=== PATIENT | female | born 1975 | race Caucasian/White ===

== ENCOUNTER 2018-10-19 06:41 | Day surgery (SDC) | payer MEDICAID ==
[2018-10-19] VITALS (29 sets, daily range): BP systolic 97–131; BP diastolic 62–83; PULSE 77–99; RESP 10–18; Ht 152.4 cm; Wt 58.4 kg
[~2018-10-19] VITALS: Ht 152.4 cm; Wt 58.4 kg
[~2018-10-19 06:41] MED LIST: CEFAZOLIN 2 GM/50 ML (PMX) 50 ML IVPB SCH; SOD CHLORIDE 0.9% 1,000 ML IV ONE
[2018-10-19] MEDS ORDERED: ACETAMINOPHEN 500 MG TAB PO ONE (07:00)
[2018-10-19] MEDS ORDERED: MIDAZOLAM 1 MG/ML 2 ML INJ ONE (07:55)
[2018-10-19] MEDS ORDERED: PROPOFOL 40 ML ONE (07:55)
[2018-10-19] MEDS ORDERED: FENTAnyl 50 MCG/ML VIAL ONE ×2 (07:55→10:53)
[2018-10-19] MEDS ORDERED: CEFAZOLIN 1 GM INJ ONE (07:55)
[2018-10-19] MEDS ORDERED: ONDANSETRON 4 MG INJ ONE (07:56)
[2018-10-19] MEDS ORDERED: ISOSULFAN BLUE 1% 5 ML INJ SC ONE (07:56)
[2018-10-19] MEDS ORDERED: FAMOTIDINE 20 MG INJ ONE (07:56)
--- NOTE | 2018-10-19 08:45 | PREAC ---
Date/Time of Note Date/Time of Note DATE: 10/19/18 TIME: 08:43 Anesthesia Eval and Record Evaluation Time Pre-Procedure Interview DATE: 10/19/18 TIME: 08:43 Age 43 Sex female NPO: 8 hrs Preoperative diagnosis L breast CA Planned procedure L needle loc partial mastectomy Past Medical History Past Medical History: None Surgery & Anesthesia Issues No known issue Meds Anticoagulation: No Beta Yessenia within 24 hr: No Reason Beta Yessenia not given: Pt. not on B-Yessenia Current Medications Cefazolin Sodium/ Dextrose 50 ml @ 100 mls/hr PRE-OP IVPB ; Start 10/19/18 at 06:00; Stop 10/19/18 at 15:00 Sodium Chloride 1,000 ml @ 75 mls/hr [id number] ONCE IV ; Start 10/19/18 at 06:00; Stop 10/19/18 at 19:19 Meds reviewed: Yes Allergies Coded Allergies: No Known Allergy (Unverified , 10/18/18) Allergies Reviewed: Yes Labs/Studies Labs Reviewed: Reviewed by anesthesiologist test: Negative Pre-procedure Exam Airway: Adequate mouth opening, Adequate thyromental dist Mallampati: Mallampati II Teeth: Normal Lung: Normal Heart: Normal ASA Physical Status ASA physical status: 2 Emergency: None Planned Anesthetic General/MAC: LMA Pre-operative Attestations Prior to commencing anesthesia and surgery, the patient was re-evaluated, there was verification of: *The patient's identity *The results of appropriate recent lab work and preoperative vital signs *The above evaluation not changing prior to induction *Anesthetic plan, risk benefits, alternative and complications discussed with patient/family; questions answered; patient/family understands, accepts and wishes to proceed. Cmm Operator used RO AGUILAR Oct 19, 2018 08:45
[2018-10-19] MEDS ORDERED: DIPHENHYDRAMINE 50 MG INJ IV PRN (09:00)
[2018-10-19] MEDS ORDERED: ALBUTEROL 0.083% (NEB) 2.5 MG/3 ML AMP HHN PRN (09:00)
[2018-10-19] MEDS ORDERED: OXYCODONE/ACETAMINOPHEN (5/325) TAB PO PRN ×2 (09:00)
[2018-10-19] MEDS ORDERED: LABETALOL HCL 20MG INJ IV PRN (09:00)
[2018-10-19] MEDS ORDERED: morphine (1 MG/ML) 10ML SYRINGE IV PRN ×2 (09:00)
[2018-10-19] MEDS ORDERED: MEPERIDINE 25 MG INJ IV PRN (09:00)
[2018-10-19] MEDS ORDERED: HYDROmorphONE 1 MG/5 ML IV SYRINGE IV PRN ×2 (09:00)
[2018-10-19] MEDS ORDERED: ONDANSETRON 4 MG INJ IV PRN ×2 (09:00→11:00)
[2018-10-19] MEDS ORDERED: FENTAnyl 50 MCG/ML VIAL IV PRN ×2 (09:00)
[2018-10-19] MEDS ORDERED: METOCLOPRAMIDE 10 MG INJ ONE (09:23)
--- NOTE | 2018-10-19 10:48 | SIPON ---
Date/Time of Note Date/Time of Note DATE: 10/19/18 TIME: 10:46 Operative Report Preoperative Diagnosis Invasive cancer left breast Postoperative Diagnosis Same Operation/Procedure Performed Needle directed left partial mastectomy and axillary dissection utilizing sentinel lymph node technique Surgeon see signature line training program assistant Dr Cheatham Second assist: ROJELIO HERRERA MD Anesthesia: general Estimated blood loss: 10 - 50 ml's Transfusion Required none Specimen Left partial mastectomy specimen and sentinel lymph node with additional axillary nodes Grafts/Implants none Complications none SILVIA DALTON MD Oct 19, 2018 10:48
[2018-10-19] MEDS ORDERED: ACETAMINOPHEN 1000MG/100ML IV 100 ML IVPB PRN (11:00)
[2018-10-19] MEDS ORDERED: morphine 2 MG INJ IV PRN (11:00)
--- NOTE | 2018-10-19 11:11 | PAC ---
Date/Time of Note Date/Time of Note DATE: 10/19/18 TIME: 11:10 Post-Anesthesia Notes Post-Anesthesia Note Last documented vital signs Vital Signs Date Temp Pulse Resp B/P (MAP) Pulse Ox O2 O2 Flow FiO2 Time Delivery Rate 10/19/18 97.5 98 79 84 18 16 109/67 99 100 Room 09:19 110 (81) 114/ Air face 5 67 mask 6L Activity: WNL Respiratory function: WNL Cardiovascular function: WNL Mental status: Baseline Pain reasonably controlled: Yes Hydration appropriate: Yes Nausea/Vomiting absent: Yes RO AGUILAR Oct 19, 2018 11:11
[2018-10-19] MEDS: D5W-0.45 NACL + KCL 20 MEQ 1,000 ML IV SCH ×3 (11:41→20:13)
[2018-10-19] MEDS: HYDROmorphONE 1 MG/5 ML IV SYRINGE IV PRN ×2 (11:48→12:07)
--- NOTE | 2018-10-19 13:16 | OPR ---
DATE OF OPERATION: 10/19/2018 PREOPERATIVE DIAGNOSIS: Invasive cancer, left breast. POSTOPERATIVE DIAGNOSIS: Invasive cancer, left breast. PROCEDURE: Left needle-directed partial mastectomy and axillary dissection utilizing sentinel lymph node technique. ANESTHESIA: General. ANESTHESIOLOGIST: Maryann Abbott CRNA SURGEON: Neo Ward MD ASSISTANTS: Jamie Cheatham MD and Maria Del Carmen Rodriguez MD INDICATIONS FOR PROCEDURE: The patient is a 43-year-old female who underwent screening mammography a nd was found to have a 1.7 cm lesion very suspicious. Core biopsy confirmed invasive cancer. The tu mor was HER-2 positive but based on the size of the tumor, decision was made not to pursue neoadjuvan t chemotherapy. She was counseled as benefit of partial mastectomy and sentinel lymph node biopsy. She consented and was scheduled for surgery. DESCRIPTION OF PROCEDURE: On the morning of surgery, the patient presented to [facility] where she underwent localization of the lesion performed by attending radiologist, Dr. Mikaela Davison. Subsequently, she was brought to the operating theater, placed under general anesth esia. The left breast and axillary region was prepped and draped in usual sterile fashion. Approxim ately 3 to 4 mL of 1% Lymphazurin blue dye were then injected peritumorally. The breast was gently m assaged for approximately 12 minutes. At this point, a 3 to 4 cm incision was made in the left axill terry hairline. Subcutaneous tissue was dissected with cautery down through the clavipectoral fascia. A dye-stained lymphatic was identified and traced to a sentinel node. This node and several additio nal nodes were resected using combination of the LigaSure device and cautery. Specimen was removed a nd sent for intraoperative analysis performed by attending pathologist, Dr. Mrak Joy. Dr. Chang mcginnis stated all nodes appeared to be benign and he deferred final diagnosis to permanent pathology. The wound was irrigated. Minimal bleeding was controlled with cautery. A #10 Italian Maverick-Rashid drain was then brought through the left mid axillary line, cut to size and weight laid within the axi lla. It was secured in place with 2-0 nylon suture in a standard fashion and the skin was then reapp roximated with 4-0 Vicryl suture in subcuticular fashion. Attention was then directed to performing the partial mastectomy. The localization wires were in the mid portion of the outer 2 quadrants of t he breast and upon examining, the post-wire placement mammogram, it was realized that the tumor was a ctually posterior to the nipple areolar complex; therefore, a periareolar incision was made from the 12 o'clock location through the 3 o'clock location to the 6 o'clock location. Subcutaneous tissue wa s dissected with cautery. Skin edges were elevated with skin hooks. Wide circumferential dissection of the tissue associated with the wires then took place, taking great care to ensure adequate margin . Specimen was elevated, transected, oriented and sent for radiographic confirmation of capture. Ca pture was confirmed. The specimen was then sent for permanent pathologic analysis. The wound was ir rigated. Residual bleeding was controlled with cautery. The skin was then reapproximated with a tang p dermal layer of 4-0 Vicryl sutures in interrupted fashion, followed by final skin approximation wit h 5-0 PDS sutures in subcuticular fashion. Dermabond was then applied to both incisions. The patien t tolerated the procedure well. Total blood loss was approximately 40 mL. There were no complicatio ns and the patient was transported in stable condition to the recovery room where circumferential com pression dressing was applied. Dictated By: NEO MANSFIELD/CHERRIE Conf#: [id number] DID#: [id number] CC: SHALONDA WEST MD;*EndCC*
[2018-10-19] MEDS ORDERED: HYDROCODONE/APAP (5/325) TAB PO PRN (17:00)
--- NOTE | 2018-10-19 18:31 | HP ---
DATE OF ADMISSION: 10/19/2018 CHIEF COMPLAINT: Chest wall pain. HISTORY OF PRESENT ILLNESS: The patient is a 43-year-old female who was noted to have 1.7 cm lesion on screening mammogram. The lesion was subsequently biopsied and was positive for invasive cancer. The tumor was HER-2 positive but based on the size of the tumor, decision was made not to pursue neoa djuvant chemotherapy. The patient was being followed by Dr. Ward as an outpatient. The patient was brought into the hospital today and underwent left needle-directed partial mastectomy and axillary d issection. The patient postoperatively had significant chest wall pain and is being admitted for fur ther evaluation and management. The patient denies history of nausea, vomiting. No history of heada keegan, dizziness, syncope. No history of fever or chills. No history of dysuria or hematuria. No his tory of focal weakness. No history of cough, shortness of breath. REVIEW OF SYSTEMS: Total of 12 systems were reviewed and all pertinent positive and negative finding s have been described in HPI. The patient's review of systems is only positive for chest wall pain f rom recent surgery. ALLERGIES: NONE. SOCIAL HISTORY: No smoking or alcohol. FAMILY HISTORY: No history of breast cancer. MEDICATIONS PRIOR TO ADMISSION: None. PHYSICAL EXAMINATION: GENERAL: Revealed the patient to be awake, alert. VITAL SIGNS: Temperature 98.7, pulse 83, respirations 16, blood pressure 113/64, O2 saturation 97% o n room air. HEENT: Atraumatic, normocephalic. Conjunctivae and lids are normal. Oropharynx is clear. NECK: Supple. No mass, thyromegaly. CHEST: Fairly clear. No use of accessory muscles. CARDIOVASCULAR: Regular rate, rhythm. S1, S2 normal. ABDOMEN: Soft, nondistended, nontender. Bowel sounds are present. No organomegaly. EXTREMITIES: No edema. Pedal pulses are palpable. SKIN: Without acute rashes. NEUROLOGIC: The patient is awake, alert, fairly oriented with no gross focal deficit. LABORATORY DATA: Pending. IMPRESSION: Invasive cancer, left breast, status post left partial mastectomy and axillary dissectio n. PLAN: The patient will be admitted to medical floor. The patient will be started on liquid diet, wh ich will be advanced as tolerated. The patient will be given IV fluid. For DVT prophylaxis, we will use SCD. For pain control, the patient will be started on Tylenol, [place] and IV morphine. We will also add Zofran on p.r.n. basis for nausea, vomiting. Plan of care was discussed with the patient's sister. We will continue to follow her. We will do CBC and CMP tomorrow. Dictated By: SHALONDA WEST MD AB/NTS Conf#: [id number] DID#: [id number] CC: SILVIA WARD MD;*EndCC*
[2018-10-19] MEDS: ACETAMINOPHEN 325 MG TAB PO PRN (20:12)
[2018-10-20] MEDS: ACETAMINOPHEN 325 MG TAB PO PRN ×2 (02:38→13:49)
[2018-10-20] MEDS: D5W-0.45 NACL + KCL 20 MEQ 1,000 ML IV SCH (02:50)
[2018-10-20 03:04] VITALS: BP 109/69; PULSE 81; RESP 18
[2018-10-20 07:45] VITALS: BP 111/63; PULSE 82; RESP 18
[2018-10-20 13:59] VITALS: BP 103/62; PULSE 91; RESP 18
--- NOTE | 2018-10-20 15:27 | PDOCDIS ---
Discharge Instructions CONDITION [id number] Patient Condition: [id number] Stable HOME CARE INSTRUCTIONS: [id number] Diet Instructions: [id number] ACTIVITY: [id number] Activity Restrictions: [id number] Rest between Activity Avoid heavy lifting Do not Drive Do not operate Machinery Do not operate Power Tool [id number] Bathing Restrictions: [id number] Sponge Bath FOLLOW UP/APPOINTMENTS Follow-up Plan FU with primary x 1 wek Fu with surgery as recommended Call 911 or got to the nearest hospital if symptoms get worsr- patient verbaliz ed understanding dc instruction Dw JAMES Lafleur Oct 20, 2018 15:27
--- NOTE | 2018-10-20 15:40 | DS ---
Date/Time of Note Date/Time of Note DATE: 10/20/18 TIME: 15:40 Discharge Summary Admission/Discharge Info Admit Date/Time Discharge Date/Time Patient Condition: Stable Home Meds No Active Prescriptions or Reported Meds Follow-up Plan FU with primary x 1 wek Fu with surgery as recommended Call 911 or got to the nearest hospital if symptoms get worsr- patient verbalized understanding dc instruction Dw Dr Bhakta Primary Care Provider Not On Staff Doctor Pending Labs Laboratory Tests Test 10/20/18 04:54 10/20/18 06:41 White Blood Count 5.6 10^3/ul (4.8-10.8) Red Blood Count 3.89 10^6/ul (4.20-5.40) Hemoglobin 11.0 g/dl (12.0-16.0) Hematocrit 34.2 % (37.0-47.0) Mean Corpuscular Volume 87.9 fl (82.0-101.0) Mean Corpuscular Hemoglobin 28.3 pg (29.0-33.0) Mean Corpuscular 32.2 g/dl (32.0-37.0) Hemoglobin Concent Red Cell Distribution Width 12.9 % (11.5-14.5) Platelet Count 290 10^3/UL (140-415) Mean Platelet Volume 9.6 fl (7.4-10.4) Immature Granulocytes % 0.200 % (0.001-0.429) Neutrophils % 82.4 % (39.0-77.0) Lymphocytes % 11.2 % (15.0-51.0) Monocytes % 5.2 % (0.0-11.0) Eosinophils % 0.5 % (0.0-7.0) Basophils % 0.5 % (0.0-2.0) Nucleated Red Blood Cells % 0.0 /100WBC (0.0-0.0) Immature Granulocytes # 0.010 10^3/ul (0.0-0.031) Neutrophils # 4.6 10^3/ul (1.6-7.5) Lymphocytes # 0.6 10^3/ul (0.8-2.9) Monocytes # 0.3 10^3/ul (0.3-0.9) Eosinophils # 0.0 10^3/ul (0.0-0.5) Basophils # 0.0 10^3/ul (0.0-0.1) Nucleated Red Blood Cells # 0.0 10^3/ul (0.0-0.0) Sodium Level 141 mmol/L (135-144) Potassium Level 4.1 mmol/L (3.5-5.1) Chloride Level 110 mmol/L (97-110) Carbon Dioxide Level 25 mmol/L (21-31) Anion Gap 6 (5-13) Blood Urea Nitrogen 4 mg/dl (7-20) Creatinine 0.45 mg/dl (0.44-1.00) Est Glomerular Filtrat > 60 mL/min (>60) Rate mL/min Glucose Level 93 mg/dl (70-220) Calcium Level 8.9 mg/dl (8.4-10.2) Total Bilirubin 0.4 mg/dl (0.2-1.3) Direct Bilirubin 0.00 mg/dl (0.00-0.20) Indirect Bilirubin 0.4 mg/dl (0-1.1) Aspartate Amino 38 IU/L (15-46) Transf (AST/SGOT) Alanine 30 IU/L (13-69) Aminotransferase (ALT/SGPT) Alkaline Phosphatase 40 IU/L (42-121) Total Protein 6.6 g/dl (6.1-8.1) Albumin 3.7 g/dl (3.3-4.9) Globulin 2.90 g/dl (1.3-3.2) Albumin/Globulin Ratio 1.27 Lab Scanned Report REFERENCE LAB [id number] JAMES DENISE Oct 20, 2018 15:40
--- NOTE | 2018-10-20 20:03 | PN ---
DATE: 10/20/2018 Postop day #1 status post left breast partial mastectomy with axillary dissection for cancer. SUBJECTIVE: No specific complaint. Has been out of bed and walk around. Tolerated diet. OBJECTIVE: Awake, alert, oriented x3. Dressing is intact. Placed a Maverick-Rashid drain and a mount of drainage from time of operation yesterday to 7 o'clock today morning has been 50 mL and the drainage is serosanguineous. The patient can move the left upper extremity, full range. PLAN: The patient can be discharged home with pain medication prescription. The patient's family in cluding her daughter was given instruction for the care of the Maverick-Rashid drain. The patient's fa violette to call on Monday to Dr. Ward' office and make appointment for followup. Dictated By: LEILA ABBOTT MD PS/NTS Conf#: [id number] DID#: [id number]
== END 2018-10-20 15:45 | disposition home or self-care (01) ==
LOC: SDS 06:41 → REC 10:48 → UNDOADMIN 10:48 → MS1 10:49 → REC 16:54 → MS1 16:54 → SDS 10-20 15:45
PROVIDERS: ATTEND Surgery Surgical Oncology
DX: D05.92 Unspecified type of carcinoma in situ of left breast (principal)
CPT/HCPCS: 19301; 38500; 80053; 85025; J0690; J1170; J2175; J2250; J2405; J2765; J3010; J3480; Z7610; J2270; Q9968

== ENCOUNTER 2018-11-15 10:08 | Inpatient (IN) | payer MEDICAID ==
[2018-11-15] VITALS (25 sets, daily range): BP systolic 99–137; BP diastolic 57–82; PULSE 81–106; RESP 10–23
[~2018-11-15] VITALS: Ht 152.4 cm; Wt 56.7 kg
--- NOTE | 2018-11-15 14:19 | PREAC ---
Date/Time of Note Date/Time of Note DATE: 11/15/18 TIME: 14:17 Anesthesia Eval and Record Evaluation Time Pre-Procedure Interview DATE: 11/15/18 TIME: 14:17 Age 43 Sex female NPO: 8 hrs Preoperative diagnosis L. Breast Cancer Planned procedure L. Mastectomy Past Medical History Past Medical History: None Surgery & Anesthesia Issues No known issue Meds Anticoagulation: No Beta Yessenia within 24 hr: No Reason Beta Yessenia not given: Pt. not on B-Yessenia No Active Prescriptions or Reported Meds Current Medications Cefazolin Sodium/ Dextrose 50 ml @ 100 mls/hr PRE-OP IVPB ; Start 11/15/18 at 08:30; Stop 11/15/18 at 15:00 Sodium Chloride 1,000 ml @ 75 mls/hr [id number] ONCE IV Last administered on 11/15/18at 11:23; Admin Dose 75 MLS/HR; Start 11/15/18 at 08:30; Stop 11/15/18 at 21:49 Meds reviewed: Yes Allergies Coded Allergies: No Known Allergy (Unverified , 11/15/18) Allergies Reviewed: Yes Labs/Studies Labs Reviewed: Reviewed by anesthesiologist test: Negative Pre-procedure Exam Last vitals Vital Signs Date Temp Pulse Resp B/P (MAP) Pulse Ox O2 O2 Flow FiO2 Time Delivery Rate 11/15/18 97.8 81 16 116/67 100 Room Air 11:13 (83) Airway: Adequate mouth opening Mallampati: Mallampati II Teeth: Normal Lung: Normal Heart: Normal ASA Physical Status ASA physical status: 2 Emergency: None Planned Anesthetic General/MAC: LMA Pre-operative Attestations Prior to commencing anesthesia and surgery, the patient was re-evaluated, there was verification of: *The patient's identity *The results of appropriate recent lab work and preoperative vital signs *The above evaluation not changing prior to induction *Anesthetic plan, risk benefits, alternative and complications discussed with patient/family; questions answered; patient/family understands, accepts and wishes to proceed. EFRAIN PARKER MD November 15, 2018 14:19
[2018-11-15] MEDS ORDERED: MIDAZOLAM 1 MG/ML 2 ML INJ ONE (14:23)
[2018-11-15] MEDS ORDERED: PROPOFOL 20 ML ONE (14:23)
[2018-11-15] MEDS ORDERED: ONDANSETRON 4 MG INJ ONE (14:23)
[2018-11-15] MEDS ORDERED: KETOROLAC 30 MG INJ ONE (14:23)
[2018-11-15] MEDS ORDERED: CEFAZOLIN 1 GM INJ ONE (14:23)
--- NOTE | 2018-11-15 15:53 | SIPON ---
Date/Time of Note Date/Time of Note DATE: 11/15/18 TIME: 15:52 Operative Report Preoperative Diagnosis Invasive cancer left breast need for completion mastectomy Postoperative Diagnosis Same Operation/Procedure Performed Left completion mastectomy Surgeon see signature line enrichment assistant Dr Cheatham Anesthesia: general Estimated blood loss: 10 - 50 ml's Transfusion Required none Specimen Left breast Grafts/Implants none Complications none SILVIA DALTON MD November 15, 2018 15:53
[2018-11-15] MEDS ORDERED: ONDANSETRON 4 MG INJ IV PRN ×2 (16:00)
[2018-11-15] MEDS ORDERED: ACETAMINOPHEN 1000MG/100ML IV 100 ML IVPB PRN (16:00)
[2018-11-15] MEDS ORDERED: OXYCODONE/ACETAMINOPHEN (5/325) TAB PO PRN (16:00)
[2018-11-15] MEDS ORDERED: HYDROmorphONE 1 MG/5 ML IV SYRINGE IV PRN (16:00)
--- NOTE | 2018-11-15 16:24 | PAC ---
Date/Time of Note Date/Time of Note DATE: 11/15/18 TIME: 16:24 Post-Anesthesia Notes Post-Anesthesia Note Last documented vital signs Vital Signs Date Temp Pulse Resp B/P (MAP) Pulse Ox O2 O2 Flow FiO2 Time Delivery Rate 11/15/18 97.8 81 16 116/67 100 Room Air 11:13 (83) Activity: WNL Respiratory function: WNL Cardiovascular function: WNL Mental status: Baseline Pain reasonably controlled: Yes Hydration appropriate: Yes Nausea/Vomiting absent: Yes EFRAIN PARKER MD November 15, 2018 16:24
--- NOTE | 2018-11-15 18:11 | OPR ---
DATE OF OPERATION: 11/15/2018 PREOPERATIVE DIAGNOSIS: Left breast cancer, need for completion mastectomy. POSTOPERATIVE DIAGNOSIS: Left breast cancer, need for completion mastectomy. OPERATION PERFORMED: Left completion mastectomy. ANESTHESIA: General. ANESTHESIOLOGIST: Mukesh Hernandez MD SURGEON: Neo Ward MD COMPUTER FORENSICS TECHNICIAN: Jamie Cheatham MD INDICATIONS FOR PROCEDURE: The patient is an unfortunate 43-year-old female who was diagnosed with i nvasive cancer of left breast. She previously underwent left partial mastectomy and axillary dissect ion. However, the final margins were inadequate and MRI did demonstrate a probable disease away from the original cancer site; therefore, she was counseled as to need for completion mastectomy. She co nsented and was scheduled for surgery. DESCRIPTION OF PROCEDURE: The patient was brought to the operating theater, placed under general ane sthesia. The left breast and axillary region was prepped and draped in usual sterile fashion. Plann ed elliptical incision was demarcated widely around the nipple areolar complex with marking pen. Inc ision was carried out with 15-blade scalpel. Subcutaneous tissue was dissected with cautery. Skin e dges were elevated with Allis Broward clamps and skin flaps were created in sequential fashion using ca utery, first superiorly to the clavicle, then medially to sternal border, inferiorly to the inframamm terry fold and laterally until the latissimus dorsi muscle was identified throughout its course. Maste ctomy then took place from medial to lateral using cautery. The border of the pectoralis major pecto ralis muscle and minor muscle was identified. Clavipectoral fascia was incised. There was significa nt scar tissue due to the previous axillary dissection. With meticulous dissection, the axillary charles l of [place] was resected. The breast was removed, oriented and sent for permanent pathologic analysi s. The wound was irrigated. Minimal residual bleeding was controlled with cautery. Two #10 flat Ja ckson-Rashid drains were then brought through the left mid axillary line, one was cut to size and laid within the axilla. The other was laid over the pectoralis major muscle. Both drains were secured i n place with 2-0 nylon sutures in the standard fashion. The skin was then reapproximated with a deep dermal layer of 4-0 Vicryl sutures in an interrupted fashion followed by final skin approximation wi th 5-0 PDS sutures in subcuticular fashion. Benzoin and Steri-Strips were then applied. The patient tolerated procedure well. The estimated blood loss was approximately 30 mL. There were no complica tions and the patient was transported in stable condition to the recovery room. Dictated By: NEO WARD MD TL/NTS Conf#: [id number] DID#: [id number] CC: SHALONDA WEST MD;*EndCC*
[2018-11-15] MEDS: D5W-0.45 NACL + KCL 20 MEQ 1,000 ML IV SCH ×2 (20:14→23:53)
[2018-11-15] MEDS: morphine 2 MG INJ IV PRN (21:41)
[2018-11-16 02:00] VITALS: BP 92/51; PULSE 79; RESP 18
--- NOTE | 2018-11-16 03:27 | HP ---
DATE OF ADMISSION: 11/15/2018 CHIEF COMPLAINT AND HISTORY OF PRESENT ILLNESS: The patient is a 43-year-old female well known to me from previous admission back in 09/2018. The patient is a 43-year-old female who was initially foun d to have 1 cm lesion on left breast on screening mammogram, which the patient underwent biopsy which was positive for invasive cancer, HER-2 positive but decision was made not to pursue neoadjuvant keegan motherapy. The patient was brought into hospital back in 09/2018 and underwent left partial mastecto my and axillary dissection. The patient was being followed by Dr. Ward as an outpatient and was not ed to have inadequate final margin on pathology. The patient also underwent MRI which did demonstrat e probable disease away from ____ site. The patient was brought in to hospital today and underwent l eft completion mastectomy. The patient has significant chest wall pain and is being admitted for fur ther evaluation and management. No history of headache, dizziness, syncope. No history of fever or chills. No history of nausea, vomiting or diarrhea. No history of dysuria, hematuria. No history o f focal weakness. No history of headache. REVIEW OF SYSTEMS: Other than postoperative pain, rest of the systems is unremarkable. A total of 1 2 systems were reviewed. All pertinent positive and negative findings have been described in the HPI . ALLERGIES: NONE. SOCIAL HISTORY: No smoking or alcohol. FAMILY HISTORY: Negative for breast cancer. PHYSICAL EXAMINATION: GENERAL: Revealed the patient to be awake, fairly oriented. VITAL SIGNS: Temperature 98.1, pulse 90, respiration 18, blood pressure 110/70, O2 saturation 97% on room air. EENT: No eye discharge or redness. Conjunctivae and lids are normal. Oropharynx is clear. NECK: Supple. No mass or thyromegaly. CHEST: Fairly clear. CARDIOVASCULAR: S1, S2 normal. No murmur. ABDOMEN: Soft, nondistended, nontender. Bowel sounds plus. EXTREMITIES: No leg edema. NEUROLOGIC: The patient is awake, alert, fairly oriented with no gross focal deficit. LABORATORY DATA: Recently, WBC 5.6, hemoglobin 11, platelets 290. Sodium 141, potassium 4.1, BUN 4, creatinine 0.4. Liver enzymes are unremarkable. IMPRESSION: Left breast cancer status post partial mastectomy back in 09/2018, subsequently due to i nadequate final margin and positive MRI for probability of ____ cancer. The patient underwent left c ompletion mastectomy. PLAN: The patient will be admitted to medical floor. The patient will be started on clear liquid di et, advance as tolerated. The patient will have SCD for DVT prophylaxis and for pain control, the pa tient has IV Tylenol and morphine. We will add Percocet for moderate pain. If the patient continues to do well, she will be discharged home tomorrow. We will continue to follow her from medical stand point. We will order followup labs tomorrow. Dictated By: SHALONDA WEST MD AB/NTS Conf#: [id number] DID#: [id number] CC: SILVIA WARD MD;*End*
[2018-11-16] MEDS: D5W-0.45 NACL + KCL 20 MEQ 1,000 ML IV SCH ×2 (04:30→13:43)
[2018-11-16] MEDS: morphine 2 MG INJ IV PRN ×2 (04:44→12:17)
[2018-11-16 08:00] VITALS: BP 96/61; PULSE 72; RESP 18
[2018-11-16 14:00] VITALS: BP 100/56; PULSE 86; RESP 18
[2018-11-16] MEDS: OXYCODONE/ACETAMINOPHEN (5/325) TAB PO PRN ×2 (14:06→18:08)
--- NOTE | 2018-11-16 15:07 | PN ---
DATE: 11/16/2018 Postop day #1 status post left breast completion mastectomy. Today is postop day #1. SUBJECTIVE: The patient complains of too much pain. OBJECTIVE: GENERAL: Awake, alert, in the bed. VITAL SIGNS: Temperature maximum 98.5, heart rate 91, respirations 19, blood pressure 129/76, saturation 97% on room air. HEART: Regular. LUNGS: Clear. ABDOMEN: Soft. SKIN: Dressing is not too tight. Wraparound dressing is intact. Two Maverick- Rashid drains in place not functioning. LABORATORY DATA: WBC 4300 with 61% segmented, hemoglobin 10, hematocrit 38.7. Chemistry: Sodium and potassium normal, BUN and creatinine normal. INPUT AND OUTPUT: The patient has 2 Maverick-Rashid drains from time of operation yesterday until today 7:00 in the morning. One of them has drained 92 mL. The other one is 16 mL.fluid in the tubings and bag right now is serosanguineous, actually more sanguineous than serous. PLAN: Considering that the patient has been complaining of too much pain especially in the family who is with the patient mentioned that she has too much pain and requires pain medication frequently; therefore, we are going to keep her overnight and we will evaluate her tomorrow. Most probably, she can be discharged home tomorrow. Dictated By: LEILA ABBOTT MD PS/NTS Conf#: [id number] DID#: [id number] CC: SILVIA DALTON MD; SHALONDA WEST MD;*EndCC* MTDD
[2018-11-16 20:00] VITALS: BP 110/68; PULSE 76; RESP 18
[2018-11-17] MEDS: D5W-0.45 NACL + KCL 20 MEQ 1,000 ML IV SCH ×3 (00:53→15:53)
[2018-11-17] MEDS: OXYCODONE/ACETAMINOPHEN (5/325) TAB PO PRN ×4 (01:04→18:32)
[2018-11-17 02:00] VITALS: BP 94/55; PULSE 71; RESP 18
[2018-11-17 08:00] VITALS: BP 94/56; PULSE 75; RESP 17
[2018-11-17 14:00] VITALS: BP 95/57; PULSE 92; RESP 18
--- NOTE | 2018-11-17 20:36 | DS ---
Date/Time of Note Date/Time of Note DATE: 11/17/18 TIME: 20:36 Discharge Summary Admission/Discharge Info Admit Date/Time November 15, 2018 at 15:54 Discharge Date/Time November 17, 2018 at 18:40 Discharge Diagnosis - Left breast cancer - status post partial mastectomy back in 09/2018, subsequently due to inadequate final margin and positive MRI for probability of cancer. - Sp left completion mastectomy. Patient Condition: Stable Hospital Course The patient is a 43-year-old female patient who was initially found to have 1 cm lesion on left breast on screening mammogram, which the patient underwent biopsy which was positive for invasive cancer, HER-2 positive but decision was made not to pursue neoadjuvant chemotherapy. The patient was brought into hospital back in 09/2018 and underwent left partial mastectomy and axillary dissection. The patient was being followed by Dr. Ward as an outpatient and was noted to have inadequate final margin on pathology. The patient also underwent MRI which did demonstrate probable disease away from site. The patient underwent left completion mastectomy. The patient admitted for further evaluation and management. GENERAL: NAD, VSS, Revealed the patient to be awake, fairly oriented. EENT: No eye discharge or redness. Conjunctivae and lids are normal. Oropharynx is clear. NECK: Supple. No mass or thyromegaly. CHEST: Fairly clear. CARDIOVASCULAR: S1, S2 normal. No murmur. ABDOMEN: Soft, nondistended, nontender. Bowel sounds plus. EXTREMITIES: No leg edema. NEUROLOGIC: The patient is awake, alert, fairly oriented with no gross focal deficit. Surgery cleared patient to discharge home. Patient discharged in a stable condition. abdias ascencio/ staff Home Meds No Active Prescriptions or Reported Meds Primary Care Provider Not On Staff Doctor Time spent on discharge: < 30 minutes JAMES DENISE November 17, 2018 20:36
--- NOTE | 2018-11-17 20:37 | PDOCDIS ---
Discharge Instructions CONDITION [id number] Patient Condition: [id number] Stable HOME CARE INSTRUCTIONS: [id number] Diet Instructions: [id number] Regular ACTIVITY: [id number] Activity Restrictions: [id number] Slowly Increase Activity Rest between Activity Avoid heavy lifting Avoid Heavy Housework Weight Bearing FOLLOW UP/APPOINTMENTS Follow-up Plan FU with PRIMARY X 1 WEEK FU W/ Emmanuel as recommended. Call 911 or go to the nearest hospital if symptoms get worse dw JAMES Kellogg November 17, 2018 20:37
== END 2018-11-17 18:40 | disposition home or self-care (01) | DRG 583 ==
LOC: SDS 10:08 → REC 15:54 → PP2 18:59
PROVIDERS: ADMIT Surgery Surgical Oncology; ATTEND Surgery Surgical Oncology
PROC: 0HTU0ZZ Resection of Left Breast, Open Approach (ICD-10-PCS; principal; 2018-11-15 12:30)
DX: C50.912 Malignant neoplasm of unspecified site of left female breast (principal)
CPT/HCPCS: 80048; 84703; 85025; 88307; J0690; J1170; J1885; J2250; J2270; J2405; J3010; J3480

== ENCOUNTER 2018-12-21 08:31 | Day surgery (SDC) | payer MEDICAID ==
[2018-12-20 14:34] VITALS: Ht 152.4 cm; Wt 58.1 kg
[~2018-12-21] VITALS: Ht 152.4 cm; Wt 58.1 kg
[2018-12-21 10:01] VITALS: BP 112/68; RESP 16
[2018-12-21] MEDS ORDERED: FENTAnyl 50 MCG/ML VIAL ONE (11:02)
[2018-12-21] MEDS ORDERED: LIDOCAINE 1% (MDV) 20 ML INJ ONE (11:02)
[2018-12-21] MEDS ORDERED: HEPARIN 1000 UNITS/ML 10 ML INJ ONE (11:02)
[2018-12-21] MEDS ORDERED: CEFAZOLIN 1 GM/50 ML (PMX) 50 ML IVPB ONE (11:02)
[2018-12-21] MEDS ORDERED: MIDAZOLAM 1 MG/ML 2 ML INJ ONE (11:02)
[2018-12-21] MEDS ORDERED: LIDOCAINE 1%/EPI (1:100,000) (MDV) 20 ML ONE (11:03)
[2018-12-21 13:54] VITALS: BP 107/57; PULSE 100; RESP 18
--- NOTE | 2018-12-21 14:01 | RADRPT ---
PROCEDURE: FLUOROSCOPIC AND ULTRASONOGRAPHIC-GUIDED PLACEMENT OF RIGHT CHEST PORT. CLINICAL INDICATION: Central line access for chemotherapy purposes. TECHNIQUE: Informed consent was obtained. The procedure, risks, benefits, complications and alternatives were e xplained to the patient. Risks including bleeding, infection, and pneumothorax were explained. The p atient understood and was willing to proceed. A procedural pause was performed. The patient's name, d ate of , and procedure to be performed were verified. The central line was inserted with all el ements of maximal sterile barrier technique. All of the following were used: head covering, facial ma sk, sterile gown, sterile gloves, a large sterile sheet, hand hygiene, and 2% chlorhexidine for cuta neous antisepsis. The right neck and anterior/superior chest wall were prepped and draped in usual sterile fashion. Limited sonography of the right neck was then performed. Noted is a patent right internal jugular vei n. Following the local injection of 1% lidocaine, the right internal jugular vein was punctured under so nographic guidance with a 20-gauge needle through which a 0.018 inch floppy tip guidewire was advance d into the superior vena cava, then the right atrium with fluoroscopic guidance. The tract was dila darrell to 5 Georgian and the wire was then replaced with a 0.035 in guidewire. A site just inferior to the clavicle in the superior anterior right chest wall was localized. One per cent lidocaine was used as local anesthesia. A transverse 2.5 cm incision was made utilizing a 15 faizan de scalpel. Utilizing blunt dissection a subcutaneous pocket was created inferior to the incision. Th e cavity was flushed with approximately 40 cc of PB antibiotic solution. The catheter was tunneled underneath the skin from the newly created pocket to the puncture site in t he neck. The central line catheter was pulled through the tract. Serial dilatation was then performed and a 7 Georgian peel away sheath was introduced. The catheter was then advanced through the peel-away sheath until the tip was positioned in the right atrium. The peel-away sheath was removed. The yudi ter was flushed, clamped, and cut to the appropriate length. The 6.6 Georgian catheter was then connected to the [employer] power port. The port was then placed into the pocket. Prior to closing the instrument and sponge count was verified and was correct. The s ubcutaneous tissue was closed with 3-0 Vicryl interrupted suture. The skin at the site of the pocket and in the neck was closed with 4-0 Vicryl suture in a running subcuticular technique. The port was f lushed with 1500 units of heparin in 1.5 cc utilizing a Diaz needle. The needle was removed. A dress ing was applied. Specimens: None. Blood loss: 5 ml. Complications: None. Anesthesia: Local and moderate sedation. Graft/Implant: Right chest port. COMPARISON: None. FINDINGS: Final radiographic images demonstrate the tip of the catheter in the upper right atrium. A total of 0.4 minutes of fluoroscopy time was used. 3 images of the chest were obtained with the image intensi fier. IMPRESSION: Successful ultrasonographic and fluoroscopic guided placement of right chest power port. RPTAT: QQ Physician Lizeth Date Time Electronically viewed and signed by Physician Lizeth on 12/21/2018 14:01 Stiven/
[2018-12-21] MEDS ORDERED: ACETAMINOPHEN 325 MG TAB PO ONE (15:00)
== END 2018-12-21 14:45 | disposition home or self-care (01) ==
LOC: SDS 08:31
PROVIDERS: ATTEND Internal Medicine Hematology & Oncology
DX: C50.912 Malignant neoplasm of unspecified site of left female breast (principal)
CPT/HCPCS: 36561; C1788; J0690; J1644; J2250; J3010; Z7610